=== PATIENT | female | born 1980 | race Two or more races ===

== ENCOUNTER → 2018-02-12 | Day surgery (SDC) | payer OTHER ==
[~2018-02-12] MED LIST: PRENATABS RX T1 EACH
== END | disposition home or self-care (01) ==
LOC: ADM 02-08 13:00 → CIR.AMB 07:00
DX: O34.31 Maternal care for cervical incompetence, first trimester (principal); Z3A.13 13 weeks gestation of pregnancy

== ENCOUNTER 2018-04-04 03:20 | Inpatient (IN) | payer OTHER ==
[~2018-04-04] VITALS: Ht 160 cm; Wt 79.4 kg
[2018-04-04] MEDS ORDERED: PROGESTERONA (10:10)
== END 2018-04-08 13:29 | disposition home or self-care (01) | DRG 770 ==
LOC: LDR 03:20 → O/R 04-05 18:00 → LDR 04-05 20:33 → SURH 04-06 21:04
PROVIDERS: Obstetrics & Gynecology
PROC: BY4CZZZ Ultrasonography of Second Trimester, Single Fetus (ICD-10-PCS; 2018-04-04)
PROC: 4A1HXCZ Monitoring of Products of Conception, Cardiac Rate, External Approach (ICD-10-PCS; 2018-04-04)
PROC: 10D17Z9 Manual Extraction of Products of Conception, Retained, Via Natural or Artificial Opening (ICD-10-PCS; principal; 2018-04-05 17:00)
PROC: 30233N1 Transfusion of Nonautologous Red Blood Cells into Peripheral Vein, Percutaneous Approach (ICD-10-PCS; 2018-04-06)
DX: O03.4 Incomplete spontaneous abortion without complication (principal); O34.32 Maternal care for cervical incompetence, second trimester; D62 Acute posthemorrhagic anemia; Z3A.19 19 weeks gestation of pregnancy

== ENCOUNTER 2018-05-22 05:15 | Inpatient (IN) | payer OTHER ==
[~2018-05-22] VITALS: Ht 160 cm; Wt 81.6 kg
[~2018-05-22 05:15] MED LIST changes: +PROGESTERONA
[2018-05-23] MEDS ORDERED: PRENATAL 19 TA1 EAC1 (13:39)
[2018-05-23] MEDS ORDERED: FOLIC ACID0.4 MG (13:40)
== END 2018-05-25 13:54 | disposition home or self-care (01) | DRG 747 ==
LOC: CIR.AMB 05:15 → OB/GYN 10:22 → O/R 10:22 → OB/GYN 10:33 → CIR.AMB 14:45 → OB/GYN 05-25 13:54
PROVIDERS: Obstetrics & Gynecology Maternal & Fetal Medicine
PROC: 0UVC7ZZ Restriction of Cervix, Via Natural or Artificial Opening (ICD-10-PCS; principal; 2018-05-22 14:45)
DX: N88.3 Incompetence of cervix uteri (principal)

== ENCOUNTER → 2019-05-23 | Emergency (ER) | payer OTHER ==
[~2019-05-23] VITALS: Ht 160 cm; Wt 85.3 kg
[~2019-05-23] MED LIST changes: +FOLIC ACID0.4 MG; +PRENATAL 19 TA1 EAC1
== END | disposition home or self-care (01) ==
LOC: ER 21:44
DX: O26.892 Other specified pregnancy related conditions, second trimester (principal); Z34.82 Encounter for supervision of other normal pregnancy, second trimester

== ENCOUNTER 2019-07-14 16:28 | Inpatient (IN) | payer OTHER ==
[~2019-07-14] VITALS: Ht 160 cm; Wt 90.7 kg
== END 2019-07-20 14:35 | disposition home or self-care (01) | DRG 831 ==
LOC: LDR 16:28 → OB/GYN 07-19 10:22
PROVIDERS: ADMIT Obstetrics & Gynecology
PROC: BY4CZZZ Ultrasonography of Second Trimester, Single Fetus (ICD-10-PCS; principal; 2019-07-14)
PROC: BY4CZZZ Ultrasonography of Second Trimester, Single Fetus (ICD-10-PCS; 2019-07-14)
PROC: 4A1HXCZ Monitoring of Products of Conception, Cardiac Rate, External Approach (ICD-10-PCS; 2019-07-14)
DX: O65.5 Obstructed labor due to abnormality of maternal pelvic organs (principal); O34.32 Maternal care for cervical incompetence, second trimester; O26.20 Pregnancy care for patient with recurrent pregnancy loss, unspecified trimester; O09.299 Supervision of pregnancy with other poor reproductive or obstetric history, unspecified trimester; Z34.82 Encounter for supervision of other normal pregnancy, second trimester

== ENCOUNTER 2019-08-12 10:34 | Outpatient (CLI) | payer OTHER | END 2019-08-13 12:59 | disposition home or self-care (01) | LOC: OBS/DEL 10:34 | DX: O34.33 Maternal care for cervical incompetence, third trimester (principal); O35.8XX0 Maternal care for other (suspected) fetal abnormality and damage, not applicable or unspecified; O26.893 Other specified pregnancy related conditions, third trimester; R10.2 Pelvic and perineal pain ==

== ENCOUNTER 2019-09-25 10:49 | Inpatient (IN) | payer OTHER ==
[~2019-09-25] VITALS: Ht 160 cm; Wt 93.9 kg
[2019-09-25] MEDS ORDERED: ANCEF PO (11:09)
[2019-09-25] MEDS ORDERED: IRON325 MG PO (11:09)
[2019-09-26] MEDS ORDERED: CEFAZOLIN SODIUM1 GM (11:31)
== END 2019-09-26 16:00 | DRG 833 ==
LOC: OBS/DEL 10:49 → LDR 13:58
PROVIDERS: ADMIT Obstetrics & Gynecology
PROC: BY4FZZZ Ultrasonography of Third Trimester, Single Fetus (ICD-10-PCS; principal; 2019-09-25)
PROC: 4A1HXCZ Monitoring of Products of Conception, Cardiac Rate, External Approach (ICD-10-PCS; 2019-09-25)
PROC: BY4FZZZ Ultrasonography of Third Trimester, Single Fetus (ICD-10-PCS; 2019-09-26)
DX: O60.03 Preterm labor without delivery, third trimester (principal); O26.843 Uterine size-date discrepancy, third trimester; O26.893 Other specified pregnancy related conditions, third trimester; R10.2 Pelvic and perineal pain

== ENCOUNTER 2019-10-08 06:18 | Inpatient (IN) | payer OTHER ==
[~2019-10-08] VITALS: Ht 160 cm; Wt 93.0 kg
[~2019-10-08 06:18] MED LIST changes: +ANCEF PO; +CEFAZOLIN SODIUM1 GM; +IRON325 MG PO
== END 2019-10-11 14:54 | disposition home or self-care (01) | DRG 786 ==
LOC: LDR 06:18 → OB/GYN 06:18 → LDR 11:47 → OB/GYN 14:18
PROVIDERS: ADMIT Obstetrics & Gynecology
PROC: 0UCC0ZZ Extirpation of Matter from Cervix, Open Approach (ICD-10-PCS; 2019-10-08)
PROC: 4A033R1 Measurement of Arterial Saturation, Peripheral, Percutaneous Approach (ICD-10-PCS; 2019-10-08)
PROC: 4A1HXCZ Monitoring of Products of Conception, Cardiac Rate, External Approach (ICD-10-PCS; 2019-10-08)
PROC: 10D00Z1 Extraction of Products of Conception, Low, Open Approach (ICD-10-PCS; principal; 2019-10-08 10:45)
DX: O34.33 Maternal care for cervical incompetence, third trimester (principal); O60.14X0 Preterm labor third trimester with preterm delivery third trimester, not applicable or unspecified; Z3A.36 36 weeks gestation of pregnancy; Z22.330 Carrier of Group B streptococcus; Z37.0 Single live birth

== ENCOUNTER 2023-06-25 17:23 | Inpatient (IN) | payer OTHER ==
[~2023-06-25] VITALS: Ht 162.6 cm; Wt 80.7 kg
== END 2023-06-29 13:55 | disposition home or self-care (01) | DRG 831 ==
LOC: OB/GYN 17:23 → LDR 17:23 → OB/GYN 06-26 10:49
PROVIDERS: ADMIT Obstetrics & Gynecology Maternal & Fetal Medicine; ATTEND Obstetrics & Gynecology Maternal & Fetal Medicine
PROC: 4A1HXCZ Monitoring of Products of Conception, Cardiac Rate, External Approach (ICD-10-PCS; principal; 2023-06-25)
PROC: BY4CZZZ Ultrasonography of Second Trimester, Single Fetus (ICD-10-PCS; 2023-06-25)
PROC: BU4CZZZ Ultrasonography of Uterus and Ovaries (ICD-10-PCS; 2023-06-25)
PROC: BU4CZZZ Ultrasonography of Uterus and Ovaries (ICD-10-PCS; 2023-06-29)
DX: O60.02 Preterm labor without delivery, second trimester (principal); O34.32 Maternal care for cervical incompetence, second trimester; Z3A.21 21 weeks gestation of pregnancy; Z20.822 Contact with and (suspected) exposure to COVID-19

== ENCOUNTER 2023-08-05 18:34 | Inpatient (IN) | payer OTHER ==
[~2023-08-05] VITALS: Ht 160 cm; Wt 80.7 kg
[2023-08-06] MEDS ORDERED: NIFEDIPINE ER60 M1 (08:12)
== END 2023-08-09 10:25 | disposition home or self-care (01) | DRG 833 ==
LOC: LDR 18:34 → OB/GYN 08-08 08:04
PROVIDERS: ADMIT Obstetrics & Gynecology Gynecology; ATTEND Obstetrics & Gynecology Gynecology
PROC: BY4FZZZ Ultrasonography of Third Trimester, Single Fetus (ICD-10-PCS; principal; 2023-08-05)
PROC: 4A1HXCZ Monitoring of Products of Conception, Cardiac Rate, External Approach (ICD-10-PCS; 2023-08-05)
DX: O34.33 Maternal care for cervical incompetence, third trimester (principal); Z3A.28 28 weeks gestation of pregnancy; O99.013 Anemia complicating pregnancy, third trimester; D64.9 Anemia, unspecified; Z20.822 Contact with and (suspected) exposure to COVID-19

== ENCOUNTER 2023-09-20 14:09 | Outpatient (CLI) | payer OTHER ==
[~2023-09-20 14:09] MED LIST changes: +NIFEDIPINE ER60 M1
== END 2023-09-20 14:39 | disposition home or self-care (01) ==
LOC: NST 14:09
PROVIDERS: ATTEND Obstetrics & Gynecology Maternal & Fetal Medicine
DX: Z34.83 Encounter for supervision of other normal pregnancy, third trimester (principal)

== ENCOUNTER 2023-09-26 06:10 | Inpatient (IN) | payer OTHER ==
[~2023-09-26] VITALS: Ht 162.6 cm; Wt 88.5 kg
[2023-09-26 07:07] LABS: HEMATOCRIT 30.6 % (36.0-45.00); HEMOGLOBIN 10.4 g/dL (12.0-15.00); MEAN CELL VOLUME 83.5 fL (80.00-100.00); MEAN CORPUSCULAR HEMOGLOBIN 28.4 pg (27.00-32.0); PLATELET COUNT 183 K/uL (150-450); RED BLOOD COUNT 3.66 M/uL (4.00-6.00); RED CELL DISTRIBUTION WIDTH 14.6 % (11.5-14.5)
[2023-09-26] MEDS ORDERED: PEPCID AC20 MG PO ×2 (07:38→23:52)
[2023-09-26] MEDS ORDERED: STOOL SOFTENER100 M1 PO (07:39)
[2023-09-26] MEDS ORDERED: PROBIOTIC1 EAC4 PO (07:40)
[2023-09-26 08:02] LABS: INR < 0.93; PARTIAL THROMBOPLASTIN TIME 25.6 SECONDS (22.0-34.0); PROTHROMBIN TIME 9.8 SECONDS (9.0-11.5)
[2023-09-26 08:04] LABS: ALBUMIN 2.5 gm/dL (3.4-5.0); BILIRUBIN TOTAL 0.31 mg/dL (0.3-1.2); CALCIUM 8.7 mg/dL (8.5-10.1); CREATININE SERUM 0.54 mg/dL (0.55-1.02); GFR 124.41; GLOBULINA 3.7 G/DL (2.4-3.5); POTASSIUM 4.16 mEq/L (3.5-5.1); TOTAL PROTEIN 6.2 gm/dL (6.4-8.2)
[2023-09-26 09:34] LABS: PH,URINE 6.5 (5.0-8.0); URINE APPEARANCE Clear; URINE BILIRRUBIN Negative (NEGATIVE); URINE BLOOD Negative; URINE COLOR Yellow; URINE GLUCOSE Negative (NEGATIVE); URINE LEUKOCYTE Negative; URINE NITRATE Negative; URINE PROTEIN Negative (NEGATIVE); URINE UROBILINOGEN 0.2 E.U./dl
[2023-09-26 09:39] LABS: URINE BACTERIA 301.1 uL (0.0-1933); URINE EPITHELIAL CELLS 10.8 uL (0.0-38.8); URINE RBC 2.1 uL (0.0-20.8); URINE WBC 6.9 uL (0.0-23.2)
[2023-09-26] MEDS ORDERED: PRENATAL TABLE1 EAC1 PO (23:51)
[2023-09-26] MEDS ORDERED: FOLIC ACID0.8 M1 PO (23:51)
[2023-09-26] MEDS ORDERED: IRON236 MG PO (23:52)
== END 2023-09-27 14:31 | disposition home or self-care (01) | DRG 831 ==
LOC: LDR 06:10
PROVIDERS: ADMIT Obstetrics & Gynecology; ATTEND Obstetrics & Gynecology
PROC: 4A1HXCZ Monitoring of Products of Conception, Cardiac Rate, External Approach (ICD-10-PCS; principal; 2023-09-26)
PROC: BY4FZZZ Ultrasonography of Third Trimester, Single Fetus (ICD-10-PCS; 2023-09-26)
PROC: BU4CZZZ Ultrasonography of Uterus and Ovaries (ICD-10-PCS; 2023-09-26)
DX: O60.03 Preterm labor without delivery, third trimester (principal); O34.33 Maternal care for cervical incompetence, third trimester; O26.843 Uterine size-date discrepancy, third trimester; O36.8130 Decreased fetal movements, third trimester, not applicable or unspecified; Z3A.35 35 weeks gestation of pregnancy; Z20.822 Contact with and (suspected) exposure to COVID-19

== ENCOUNTER 2023-10-11 05:29 | Inpatient (IN) | payer OTHER ==
[~2023-10-11] VITALS: Ht 162.6 cm; Wt 88.5 kg
[~2023-10-11 05:29] MED LIST changes: +FOLIC ACID0.8 M1 PO; +IRON236 MG PO; +PEPCID AC20 MG PO; +PRENATAL TABLE1 EAC1 PO; +PROBIOTIC1 EAC4 PO; +STOOL SOFTENER100 M1 PO
[2023-10-11 07:30] LABS: HEMATOCRIT 28.6 % (36.0-45.00); HEMOGLOBIN 9.7 g/dL (12.0-15.00); MEAN CELL VOLUME 82.7 fL (80.00-100.00); MEAN CORPUSCULAR HEMOGLOBIN 28.2 pg (27.00-32.0); MEAN CORPUSCULAR HGB CONC 34.1 g/dl (32.0-36.0); PLATELET COUNT 195 K/uL (150-450); RED BLOOD COUNT 3.45 M/uL (4.00-6.00); RED CELL DISTRIBUTION WIDTH 14.7 % (11.5-14.5)
[2023-10-11 08:09] LABS: INR < 0.93; PARTIAL THROMBOPLASTIN TIME 25.1 SECONDS (22.0-34.0); PROTHROMBIN TIME 9.8 SECONDS (9.0-11.5)
[2023-10-11 08:43] LABS: ALBUMIN 2.6 gm/dL (3.4-5.0); BILIRUBIN TOTAL 0.34 mg/dL (0.3-1.2); CALCIUM 8.8 mg/dL (8.5-10.1); CREATININE SERUM 0.56 mg/dL (0.55-1.02); GFR 119.3; GLOBULINA 3.3 G/DL (2.4-3.5); POTASSIUM 4.03 mEq/L (3.5-5.1); TOTAL PROTEIN 5.9 gm/dL (6.4-8.2)
[2023-10-12 06:51] LABS: HEMATOCRIT 26.2 % (36.0-45.00); MEAN CELL VOLUME 83.1 fL (80.00-100.00); MEAN CORPUSCULAR HEMOGLOBIN 28.5 pg (27.00-32.0); MEAN CORPUSCULAR HGB CONC 34.3 g/dl (32.0-36.0); PLATELET COUNT 159 K/uL (150-450); RED BLOOD COUNT 3.15 M/uL (4.00-6.00); RED CELL DISTRIBUTION WIDTH 14.8 % (11.5-14.5)
== END 2023-10-13 13:31 | disposition home or self-care (01) | DRG 788 ==
LOC: OB/GYN 05:29 → O/R 05:29 → LDR 05:29 → O/R 08:55 → OB/GYN 10:05
PROVIDERS: Obstetrics & Gynecology; ADMIT Obstetrics & Gynecology; ATTEND Obstetrics & Gynecology
PROC: 4A1HXCZ Monitoring of Products of Conception, Cardiac Rate, External Approach (ICD-10-PCS; 2023-10-11)
PROC: 10D00Z1 Extraction of Products of Conception, Low, Open Approach (ICD-10-PCS; principal; 2023-10-11 10:45)
DX: O34.211 Maternal care for low transverse scar from previous cesarean delivery (principal); Z3A.37 37 weeks gestation of pregnancy; Z37.0 Single live birth; Z20.822 Contact with and (suspected) exposure to COVID-19